=== PATIENT | female | born 2000 | race Caucasian/White ===

== ENCOUNTER 2023-10-04 07:54 | Inpatient (IN) | payer OTHER ==
[~2023-10-04] VITALS: Ht 160 cm; Wt 77.1 kg
[2023-10-04 08:35] LABS: HEMATOCRIT. 45.5 % (36.0-48.0); HEMOGLOBIN. 14.4 g/dL (12.0-16.0); MEAN CORPUSCULAR HEMOGLOBIN 26.7 pg (28.0-32.0); MEAN CORPUSCULAR HGB CONC 31.8 g/dL (31.0-37.0); MEAN PLATELET VOLUME 9.6 fl (7.4-10.4); PLATELET 288 x1000/uL (130-400); RED BLOOD CELL COUNT 5.42 mill/uL (4.2-5.4); RED CELL DISTRIBUTION WIDTH 13.3 % (11.6-14.6); WHITE BLOOD COUNT 22.4 x1000/uL (4.5-11.0)
[2023-10-04 08:43] LABS: DIFFERENTIAL COMMENT 1
[2023-10-04 08:57] LABS: ALANINE AMINOTRANSFERASE 10 IU/L (10-49); ALBUMIN 4.6 g/dL (3.2-4.8); ASPARTATE AMINOTRANSFERASE 13 IU/L (<34); BILIRUBIN TOTAL 0.9 mg/dL (0.1-1.0); CALCIUM 9.4 mg/dL (8.7-10.4); CARBON DIOXIDE 18 mEq/L (21-32); CHLORIDE 104 mEq/L (98-107); CREATININE 0.8 mg/dL (0.6-1.0); POTASSIUM 4.1 mEq/L (3.5-5.1); PROTEIN TOTAL 8.7 g/dL (6.0-8.3); SODIUM 139 mEq/L (136-145); UREA NITROGEN BLOOD 16 mg/dL (9-23)
[2023-10-04 09:03] LABS: GLUCOSE 452 mg/dL (70-105)
[2023-10-04 09:07] LABS: CLARITY URINE CLEAR (CLEAR); COLOR URINE YELLOW (YELLOW); GLUCOSE URINE 3+ (NEGATIVE); KETONES URINE 4+ (NEGATIVE); LEUKOCYTE ESTERASE URINE NEGATIVE (NEGATIVE); NITRITE URINE NEGATIVE (NEGATIVE); OCCULT BLOOD URINE 2+ (NEGATIVE); PH URINE 5.5 (4.5-8.0); PROTEIN URINE NEGATIVE (NEGATIVE); SPECIFIC GRAVITY URINE 1.022 (1.005-1.030); UROBILINOGEN URINE 0.2 E.U./dL (0.2-1.0)
[2023-10-04 09:21] LABS: BACTERIA URINE RARE; SQUAMOUS EPITHELIAL CELL URINE FEW /lpf (RARE/1+); WBC URINE 0-2 /hpf (0-2); YEAST URINE NONE SEEN
[2023-10-04] MEDS ORDERED: SODIUM CHLORIDE 0.9% 1,000 ML IV ONE ×2 (09:30→16:00)
[2023-10-04 10:39] LABS: ALANINE AMINOTRANSFERASE 10 IU/L (10-49); ALBUMIN 4.5 g/dL (3.2-4.8); ASPARTATE AMINOTRANSFERASE 15 IU/L (<34); BILIRUBIN TOTAL 0.9 mg/dL (0.1-1.0); CALCIUM 9.5 mg/dL (8.7-10.4); CARBON DIOXIDE 16 mEq/L (21-32); CHLORIDE 105 mEq/L (98-107); CREATININE 0.9 mg/dL (0.6-1.0); POTASSIUM 5.5 mEq/L (3.5-5.1); PROTEIN TOTAL 8.9 g/dL (6.0-8.3); SODIUM 138 mEq/L (136-145); UREA NITROGEN BLOOD 15 mg/dL (9-23)
[2023-10-04] MEDS ORDERED: POTASSIUM CHLORIDE INJ 40 MEQ in SODIUM CHLORIDE 0.9% 230 ML IV PRN (10:45)
[2023-10-04] MEDS ORDERED: DEXTROSE 50% WATER 50ML SYRINGE IV PRN (10:45)
[2023-10-04] MEDS ORDERED: SODIUM CHLORIDE 0.9% 1,000 ML IV SCH ×2 (10:45→13:00)
[2023-10-04] MEDS: DEXT 5%/0.9% NACL 1,000 ML IV SCH ×2 (10:45→18:06)
[2023-10-04] MEDS ORDERED: KCL 20MEQ/100ML PREMIX 100 ML IV PRN (10:45)
[2023-10-04 10:53] LABS: GLUCOSE 446 mg/dL (70-105); TROPONIN I HIGH SENSITIVITY < 4 ng/L (3.0-34)
[2023-10-04] MEDS ORDERED: ONDANSETRON HCL 4MG/2ML INJ IV ONE (11:00)
[2023-10-04] MEDS: BLOOD SUGAR DIAGNOSTIC STRIP TEST SCH ×6 (11:08→23:45)
[2023-10-04 11:24] LABS: CALCIUM 9.3 mg/dL (8.7-10.4); CARBON DIOXIDE 15 mEq/L (21-32); CHLORIDE 106 mEq/L (98-107); CREATININE 0.8 mg/dL (0.6-1.0); PHOSPHORUS 5.5 mg/dL (2.5-4.9); SODIUM 139 mEq/L (136-145); UREA NITROGEN BLOOD 15 mg/dL (9-23)
[2023-10-04 11:32] LABS: BG BASE EXCESS -17.6 mmol/L (-2.0-2.0); BG CARBOXYHEMOGLOBIN 0.6 % (0.5-1.5); BG DEOXYHEMOGLOBIN 1.4 % (0.0-5.0); BG FRACTION INSPIRED OXYGEN 21; BG HCO3 ACT 7.4 mmol/L (22.0-26.0); BG METHEMOGLOBIN 0.4 % (0.0-1.5); BG OXYGEN SATURATION 98.6 % (92.0-98.5); BG OXYHEMOGLOBIN 97.6 % (94.0-97.0); BG PCO2 18.3 mmHg (35.0-45.0); BG PH 7.227 (7.350-7.450); BG PO2 137.1 mmHg (75.0-100.0); BG SAMPLE SITE LEFT FEMORAL; BG TOTAL HEMOGLOBIN 15.6 g/dL (12.0-18.0); BG VENT MODE ROOM AIR
[2023-10-04 11:32] LABS: GLUCOSE 428 mg/dL (70-105)
[2023-10-04] MEDS ORDERED: ONDANSETRON HCL 4MG/2ML INJ IV PRN (13:00)
[2023-10-04] MEDS ORDERED: INSULIN REGULAR (HUMULIN R) 300UNITS/3ML VIAL IV NR ×2 (13:00→13:30)
[2023-10-04] MEDS ORDERED: INSULIN REGULAR (DRIP) 100 UNITS in SODIUM CHLORIDE 0.9% 99 ML IV SCH (13:00)
[2023-10-04 13:17] LABS: PLATELET ESTIMATE NORMAL
[2023-10-04] MEDS ORDERED: INSULIN REGULAR 100U/100ML PMX 100 ML IV SCH (13:30)
[2023-10-04] MEDS ORDERED: METOCLOPRAMIDE HCL 10MG/2ML VIAL IV PRN (15:30)
[2023-10-04 20:40] LABS: HEMATOCRIT. 40.2 % (36.0-48.0); HEMOGLOBIN. 13.2 g/dL (12.0-16.0); MEAN CORPUSCULAR HEMOGLOBIN 26.5 pg (28.0-32.0); MEAN CORPUSCULAR HGB CONC 32.8 g/dL (31.0-37.0); MEAN CORPUSCULAR VOLUME 80.8 fL (81.0-99.0); MEAN PLATELET VOLUME 9.5 fl (7.4-10.4); PLATELET 286 x1000/uL (130-400); RED BLOOD CELL COUNT 4.97 mill/uL (4.2-5.4); RED CELL DISTRIBUTION WIDTH 12.9 % (11.6-14.6); WHITE BLOOD COUNT 21.6 x1000/uL (4.5-11.0)
[2023-10-04 20:42] LABS: DIFFERENTIAL COMMENT 1
[2023-10-04 20:48] LABS: ALANINE AMINOTRANSFERASE < 7 IU/L (10-49); ALBUMIN 3.8 g/dL (3.2-4.8); ASPARTATE AMINOTRANSFERASE 11 IU/L (<34); BILIRUBIN TOTAL 0.5 mg/dL (0.1-1.0); CALCIUM 8.6 mg/dL (8.7-10.4); CARBON DIOXIDE 15 mEq/L (21-32); CHLORIDE 115 mEq/L (98-107); CREATININE 0.7 mg/dL (0.6-1.0); GLUCOSE 266 mg/dL (70-105); POTASSIUM 4.1 mEq/L (3.5-5.1); PROTEIN TOTAL 7.5 g/dL (6.0-8.3); SODIUM 141 mEq/L (136-145); UREA NITROGEN BLOOD 10 mg/dL (9-23)
[2023-10-04 20:53] LABS: PHOSPHORUS 0.9 mg/dL (2.5-4.9)
[2023-10-04 21:09] LABS: PLATELET ESTIMATE NORMAL
[2023-10-04 22:25] VITALS: BP 134/67; PULSE 87; RESP 12; TEMP 98.2
[2023-10-04 22:32] VITALS: BP 131/71; RESP 29; TEMP 98.3
[2023-10-04 23:00] VITALS: BP 143/81; PULSE 104; RESP 22
[2023-10-04] MEDS ORDERED: SODIUM CHLORIDE 0.9% 1,000 ML IV PRN (23:00)
[2023-10-04] MEDS ORDERED: POTASSIUM PHOS,M-BASIC-D-BASIC 30 MMOL in SODIUM CHLORIDE 0.9% 500 ML IV NR (23:00)
[2023-10-04] MEDS: DEXT 5%/0.9% NACL 1,000 ML IV PRN (23:16)
[2023-10-05] VITALS (19 sets, daily range): BP systolic 98–139; BP diastolic 50–78; PULSE 68–88; RESP 14–27; TEMP 97.8–98.4; O2SAT 100
[2023-10-05] MEDS ORDERED: INSULIN REGULAR 100U/100ML PMX 100 ML IV SCH
[2023-10-05] MEDS: BLOOD SUGAR DIAGNOSTIC STRIP TEST SCH ×10 (01:30→10:09)
[2023-10-05] MEDS: DEXT 5%/0.9% NACL 1,000 ML IV PRN ×4 (01:31→10:10)
[2023-10-05 06:50] LABS: BASOPHILS % 0.2 % (0.0-2.0); EOSINOPHILS % 0.4 % (0.0-5.0); HEMATOCRIT. 38.1 % (36.0-48.0); HEMOGLOBIN. 12.2 g/dL (12.0-16.0); LYMPHOCYTES % 14.3 % (20.0-50.0); MEAN CORPUSCULAR HEMOGLOBIN 26.3 pg (28.0-32.0); MEAN CORPUSCULAR HGB CONC 32.1 g/dL (31.0-37.0); MEAN PLATELET VOLUME 9.5 fl (7.4-10.4); MONOCYTES % 10.4 % (2.0-8.0); NEUTROPHILS % 74.7 % (40.0-76.0); PLATELET 274 x1000/uL (130-400); RED BLOOD CELL COUNT 4.65 mill/uL (4.2-5.4); RED CELL DISTRIBUTION WIDTH 13.1 % (11.6-14.6); WHITE BLOOD COUNT 19.4 x1000/uL (4.5-11.0)
[2023-10-05 08:25] LABS: CALCIUM 8.1 mg/dL (8.7-10.4); CARBON DIOXIDE 21 mEq/L (21-32); CHLORIDE 117 mEq/L (98-107); CREATININE 0.5 mg/dL (0.6-1.0); GLUCOSE 131 mg/dL (70-105); PHOSPHORUS 3.2 mg/dL (2.5-4.9); POTASSIUM 3.7 mEq/L (3.5-5.1); SODIUM 146 mEq/L (136-145); UREA NITROGEN BLOOD 10 mg/dL (9-23)
[2023-10-05] MEDS ORDERED: PANTOPRAZOLE SODIUM 40 MG/VIAL IV SCH (09:00)
[2023-10-05] MEDS ORDERED: SODIUM CHLORIDE 0.9% 1,000 ML IV SCH (10:45)
[2023-10-05] MEDS ORDERED: DEXTROSE 50% WATER 50ML SYRINGE IV PRN (10:45)
[2023-10-05] MEDS ORDERED: INSULIN GLARGINE 100 UNITS/ML SUBCUT NR (11:00)
[2023-10-05] MEDS ORDERED: MAGNESIUM 2 G PREMIX 50 ML IV NR (11:00)
[2023-10-05] MEDS ORDERED: BLOOD SUGAR DIAGNOSTIC STRIP TEST SCH (12:50)
[2023-10-05] MEDS ORDERED: INSULIN LISPRO 100 UNITS/ML SUBCUT SCH (13:20)
== END 2023-10-05 18:26 | disposition home or self-care (01) | DRG 638 ==
LOC: ER 07:54 → MICUSO 10:38 → EDBEDREQ 10:43 → CVICU 22:09 → 6WST 10-05 14:58
PROVIDERS: ADMIT Internal Medicine; ATTEND Internal Medicine
DX: E10.10 Type 1 diabetes mellitus with ketoacidosis without coma (principal); R65.10 Systemic inflammatory response syndrome (SIRS) of non-infectious origin without acute organ dysfunction; E83.39 Other disorders of phosphorus metabolism; E87.5 Hyperkalemia; Z79.4 Long term (current) use of insulin; Z83.3 Family history of diabetes mellitus
CPT/HCPCS: 36415; 36600; 71045; 80048; 80051; 80053; 81003; 82375; 82805; 82962; 83735; 83930; 84100; 84484; 85025; 93005; 99291; C9113; J1815; J2405; J2765; J3475; J3490; J7030; J7040; J7042